=== PATIENT | female | born 1985 | race Caucasian/White ===

== ENCOUNTER 2018-11-11 20:42 | Emergency (ER) | payer MEDICAID ==
[~2018-11-11] VITALS: Ht 157.5 cm; Wt 56.7 kg
[2018-11-11 20:49] VITALS: Ht 157.5 cm; Wt 56.7 kg
[2018-11-11 21:45] VITALS: BP 166/99
== END 2018-11-11 21:59 | disposition home or self-care (01) ==
LOC: ED 20:42
DX: R91.1 Solitary pulmonary nodule (principal); R06.02 Shortness of breath; M79.10 Myalgia, unspecified site; Z98.890 Other specified postprocedural states
CPT/HCPCS: J1885

== ENCOUNTER 2018-12-31 12:21 | Emergency (ER) | payer MEDICAID ==
[~2018-12-31] VITALS: Ht 154.9 cm; Wt 54.2 kg
[2018-12-31 12:35] VITALS: Ht 154.9 cm; Wt 54.2 kg
[2018-12-31 13:50] LABS: CALCIUM 8.4 mg/dL (8.5-10.1); CARBON DIOXIDE 27.7 mmol/L (21-32); CHLORIDE SERUM 102 mmol/L (98-107); CREATININE SERUM 0.6 mg/dL (0.6-1.0); GFR1 > 60 mL/min; GLUCOSE SERUM 98 mg/dL (74-106); POTASSIUM SERUM 3.4 mmol/L (3.5-5.1); SODIUM SERUM 140 mmol/L (136-145)
[2018-12-31 13:54] LABS: ALKALINE PHOSPHATASE 72 U/L (46-116); ALT/SGPT 30 U/L (14-59); AST/SGOT 16 U/L (15-37); BILIRUBIN TOTAL 0.3 mg/dL (0.20-1.00); TOTAL PROTEIN, SERUM 7.6 g/dL (6.4-8.2)
[2018-12-31 13:55] LABS: PLATELET COUNT 361 x10^3mcL (130-400); RED CELL DISTRIBUTION WIDTH 13.1 % (11.5-14.5)
[2018-12-31 15:04] LABS: AMPHETAMINE QUAL UR NONE DETECTED (See below)
[2018-12-31 16:05] VITALS: BP 156/99
== END 2018-12-31 16:06 | disposition home or self-care (01) ==
LOC: ED 12:21
PROVIDERS: Emergency Medicine
DX: I10 Essential (primary) hypertension (principal); R07.89 Other chest pain; R51 Headache
CPT/HCPCS: 83880; J3490

== ENCOUNTER 2019-04-05 15:10 | Emergency (ER) | payer SELFPAY ==
[~2019-04-05] VITALS: Ht 154.9 cm; Wt 55.8 kg
[2019-04-05 15:12] VITALS: Ht 154.9 cm; Wt 55.8 kg
[2019-04-05 18:02] VITALS: BP 154/75
== END 2019-04-05 18:02 | disposition home or self-care (01) ==
LOC: ED 15:10
DX: G44.209 Tension-type headache, unspecified, not intractable (principal); N39.0 Urinary tract infection, site not specified; I10 Essential (primary) hypertension

== ENCOUNTER 2019-08-11 14:17 | Emergency (ER) | payer MEDICAID ==
[~2019-08-11] VITALS: Ht 154.9 cm; Wt 55.3 kg
[2019-08-11 14:23] VITALS: Ht 154.9 cm; Wt 55.3 kg
[2019-08-11 15:37] LABS: BASOPHIL % 0.2 % (0-2); PLATELET COUNT 392 x10^3mcL (130-400); RED CELL DISTRIBUTION WIDTH 12.6 % (11.5-14.5)
[2019-08-11 15:53] LABS: ALBUMIN 3.8 g/dL (3.4-5.0); ALKALINE PHOSPHATASE 72 U/L (46-116); ALT/SGPT 51 U/L (14-59); AST/SGOT 26 U/L (15-37); BILIRUBIN TOTAL 0.46 mg/dL (0.20-1.00); CALCIUM 9.2 mg/dL (8.5-10.1); CARBON DIOXIDE 30.5 mmol/L (21-32); CHLORIDE SERUM 104 mmol/L (98-107); CREATININE SERUM 0.6 mg/dL (0.6-1.0); GFR1 > 60 mL/min; GLUCOSE SERUM 120 mg/dL (74-106); LIPASE 188 IU/L (73-393); SODIUM SERUM 143 mmol/L (136-145); TOTAL PROTEIN, SERUM 7.4 g/dL (6.4-8.2)
[2019-08-11 15:58] LABS: POTASSIUM SERUM 2.6 mmol/L (3.5-5.1)
[2019-08-11 17:05] LABS: microscopic required? YES; urine erythrocyte 2+ (NEGATIVE)
[2019-08-11 21:59] VITALS: BP 114/69
== END 2019-08-11 22:00 | disposition home or self-care (01) ==
LOC: ED 14:17
PROVIDERS: Emergency Medicine
DX: R10.816 Epigastric abdominal tenderness (principal); E87.6 Hypokalemia; I10 Essential (primary) hypertension; R11.0 Nausea
CPT/HCPCS: J1885; J2060; J2405; J3480; J7030; Q0092